=== PATIENT | male | born 1990 | race Caucasian/White ===

== ENCOUNTER 2016-05-23 20:50 | Emergency (ER) | payer OTHER ==
[~2016-05-23] VITALS: Ht 198.1 cm; Wt 160.1 kg
[2016-05-23 21:02] VITALS: BP 154/72
--- NOTE | 2016-05-23 21:40 | RADIOLOGY REPORT ---
EXAMINATION: XR FINGER, LEFT CLINICAL INFORMATION: Pain. Dislocation. COMPARISON: No relevant prior imaging is available. TECHNIQUE: An AP view of the left hand was obtained. 2 additional views of the second digit were obtained. FINDINGS: There is an acute comminuted fracture involving the proximal phalanx of the second digit. No clear evidence of intra-articular involvement. There is slight dorsal angulation of the distal fragment on the lateral projection. No dislocation. There is soft tissue swelling surrounding the fracture. The remainder of the visualized left hand is normal. IMPRESSION: Acute comminuted fracture of the proximal phalanx of the left second digit. No clear evidence of intra-articular involvement.
[2016-05-23] MEDS ORDERED: IBUPROFEN800 M1 PO (21:41)
[2016-05-23] MEDS ORDERED: PERCOCET 5-3251 EACH PO (21:41)
--- NOTE | 2016-05-23 21:44 | ED HAND/WRIST INJURY COMPLAINT ---
History of Present Illness General Chief Complaint: Upper Extremity Injury Stated Complaint: LEFT INDEX FINGER DISLOCATION Source: patient Exam Limitations: no limitations Vital Signs & Intake/Output Vital Signs & Intake/Output Vital Signs Date Time Temp Pulse Resp B/P Pulse O2 O2 Flow FiO2 Ox Delivery Rate 05/237 97 Room Air 05/23 2101 98.7 91 20 154/72 97 Room Air Allergies Coded Allergies: No Known Allergies (05/23/16) Reconcile Medications Ibuprofen 800 MG TABLET 1 TAB PO TID PAIN Oxycodone HCl/Acetaminophen (Percocet 5-325 MG Tablet) 5 MG-325 MG TABLET 1-2 TAB PO Q6P PRN PAIN Triage Note: TRIAGE: PT TO ER C/C ?DISLOCATED L INDEX FINGER S/P FALL AT 4 PM "WHEN I WAS TRYING TO SHOW OFF". HAS SPLINT IN PLACE FROM HOME WITH PENCIL AND TAPE. REFUSES OFFERED MEDICATIONS AT TRIAGE. Triage Nurses Notes Reviewed? yes Occurred: just prior to arrival Duration: hour(s): (4), constant Timing: single episode today Injury Environment: home Severity: moderate, severe Pain/Injury Location: Left: 2nd finger. Method of Injury: fall No Modifying Factors: none HPI: 26-year-old male comes into emergency room with complaints of left index finger pain. Patient reports that he fell about 4 hours ago . Sharp throbbing pain. Swelling. Continuous. Nonradiating. Denies any injury or trauma anywhere else. Denies any other associated symptoms. (KATRIN JAQUEZ) Past History Travel History Traveled to [place] past 21 day No Medical History Any Pertinent Medical History? see below for history Neurological: NONE EENT: NONE Cardiovascular: NONE Respiratory: NONE Gastrointestinal: NONE Hepatic: NONE Renal: NONE Musculoskeletal: NONE Psychiatric: NONE Endocrine: GYNECOMASTIA Blood Disorders: NONE Cancer(s): NONE BURNER HAND/Reproductive: NONE Surgical History Surgical History: non-contributory Psychosocial History What is your primary language Indonesian Tobacco Use: Quit >30 days ago ETOH Use: occasional use Illicit Drug Use: denies illicit drug use Family History Hx Contributory? No (KATRIN JAQUEZ) Review of Systems Review of Systems Constitutional: Reports: no symptoms. EENTM: Reports: no symptoms. Respiratory: Reports: no symptoms. Cardiovascular: Reports: no symptoms. GI: Reports: no symptoms. Genitourinary: Reports: no symptoms. Musculoskeletal: Reports: see HPI. Skin: Reports: no symptoms. Neurological/Psychological: Reports: no symptoms. Hematologic/Endocrine: Reports: no symptoms. Immunologic/Allergic: Reports: no symptoms. All Other Systems: Reviewed and Negative (KATRIN JAQUEZ) Physical Exam Physical Exam General Appearance: well developed/nourished, mild distress Head: atraumatic Eyes: Bilateral: normal appearance. Ears, Nose, Throat: normal ENT inspection, hearing grossly normal Neck: normal inspection Cardiovascular/Respiratory: no respiratory distress Back: normal inspection Hand Left: 2nd finger, swelling of proximal phalanx, crepitus of proximal phalanx, limited range of motion, cap refill intact, sensation intact, Hand Right: normal inspection, normal range of motion Neurologic/Tendon: normal sensation, normal motor functions, normal tendon functions, responds to pain, no evidence tendon injury, no pulse deficit Skin: intact, normal color, warm/dry Lymphatic: no anterior cervical stephani (KATRIN JAQUEZ) Progress Differential Diagnosis: contusion, compartment syndrome, dislocation, fracture, gout, sprain Plan of Care: Orders Procedure Date/time Status XRY-FINGERS, LEFT 05/23 2106 Active Diagnostic Imaging: Viewed by Me: Radiology Read. Discussed w/RAD: Radiology Read. Radiology Impression: SERVICE DATE: 05/23/16 EXAM TYPE: RAD - XRY-FINGERS , LEFT EXAMINATION: XR FINGER, LEFT CLINICAL INFORMATION: Pain. Dislocation. COMPARISON: No relevant prior imaging is available. TECHNIQUE: An AP view of the left hand was obtained. 2 additional views of the second digit were obtained. FINDINGS: There is an acute comminuted fracture involving the proximal phalanx of the second digit. No clear evidence of intra-articular involvement. There is slight dorsal angulation of the distal fragment on the lateral projection. No dislocation. There is soft tissue swelling surrounding the fracture. The remainder of the visualized left hand is normal. IMPRESSION: Acute comminuted fracture of the proximal phalanx of the left second digit. No clear evidence of intra-articular involvement. (KATRIN JAQUEZ) Departure Departure Disposition: HOME OR SELF CARE Condition: Stable Clinical Impression Primary Impression: Fracture of finger, left, closed Referrals: CYNDEE MITCHELL MD PATIENT HAS NO PRIMARY CARE DR (PCP/Family) Additional Instructions: Ice. Rest. Stay in splint. Follow-up with hand specialist provided. Take Percocet and ibuprofen as prescribed. Departure Forms: Customer Survey General Discharge Information Prescriptions: Current Visit Scripts Ibuprofen 1 TAB PO TID #30 TAB Oxycodone HCl/Acetaminophen (Percocet 5-325 MG Tablet) 1-2 TAB PO Q6P PRN PAIN #20 TAB (KATRIN JAQUEZ) PA/LEAD DATA ENTRY OPERATOR Co-Sign Statement Statement: ED Attending supervision documentation- [] I saw and evaluated the patient. I have also reviewed all the pertinent lab results and diagnostic results. I agree with the findings and the plan of care as documented in the PA's/LEAD DATA ENTRY OPERATOR's documentation. [X] I have reviewed the ED Record and agree with the PA's/LEAD DATA ENTRY OPERATOR's documentation. [] Additions or exceptions (if any) to the PAs/LEAD DATA ENTRY OPERATOR's note and plan are summarized below: [] (NEMO MENDOZA,DILSHAD Win) Procedures Splinting Location: left index finger Manual Alignment Performed: No Splint: finger splint Splint Applied By: splint applied by me Pre-Proc Neuro Vasc Exam: normal Post-Proc Neuro Vasc Exam: normal (KATRIN JAQUEZ)
== END 2016-05-23 21:54 ==
LOC: ERH 20:50
DX: S62.611A Displaced fracture of proximal phalanx of left index finger, initial encounter for closed fracture (principal); W19.XXXA Unspecified fall, initial encounter
CPT/HCPCS: 73140-LT

== ENCOUNTER → 2016-06-02 | Day surgery (SDC) | payer OTHER ==
[~2016-06-02] VITALS: Ht 198.1 cm; Wt 160.1 kg
[~2016-06-02] MED LIST: IBUPROFEN800 M1 PO; PERCOCET 5-3251 EACH PO
--- NOTE | 2016-06-02 14:38 | Operative Report ---
Operative/Inv Procedure Report Surgery Date: 06/02/16 Name of Procedure: Open reduction internal fixation left index proximal phalanx fracture. Pre-Operative Diagnosis: Comminuted, displaced unstable closed left index finger proximal phalanx fracture. Post-Operative Diagnosis: Same. Estimated Blood Loss: scant Surgeon/Employer Relations Representative: BUCKY MOJICA MD / ZARA SINGH (the physician's assistant distribution manager was required as an extra set of skilled hands throughout the entirety of the case due to the increased complexity of the case due to the multiple fracture fragments ( comminution) with extreme instability. The procedure could simply not be performed satisfactorily without an extra set of skilled hands understanding of goals of fracture fragment reduction and stabilization and instrumentation). Anesthesia: laryngeal mask airway Monitors: EKG/blood pressure/oxygen saturation. IV Fluids: Lactated Ringer's. Implants: Acumed 1.5 mm fully threaded cortical screws 7 Urine Output: None. Drains: None. Specimens: None. Microbiology: None. Tourniquet: 130 minutes@ 275 mmHg. Complications: None known. Condition: Stable. 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 Injury apparently occurred when another individual yanked and twisted his left index finger. The patient went to the [facility] emergency room. X-rays of the finger revealed the fracture. The finger was splinted and the patient was discharged with instructions for ice treatments and elevation and to be seen for orthopedic follow-up. The patient did not seek medical-orthopedic follow-up immediately following his emergency room visit as he did not understand that this fracture was a time sensitive issue. He did eventually present to our office a couple of days ago where x-rays of the finger were evaluated. The patient was advised based upon radiographic appearance of the finger as well as clinical rotatory and angulatory deformity appreciated on examination that he would be best served by undergoing surgical management of his index finger proximal phalanx fracture. The risks and benefits and expected outcomes of nonoperative management splinting/casting followed by early mobilization and extensive therapy were reviewed. The patient was advised that we anticipate that he would have significant lingering rotatory and angulatory deformity of the finger based upon the clinical examination on his initial office visit for this fracture. The risks and benefits and expected outcomes of operative intervention were also reviewed. The patient was advised that he would likely have significant stiffness with or without surgical intervention but that hopefully with surgical intervention we could achieve enough stability of the fracture fragments to allow for some earlier mobilization to minimize joint stiffness. We did also discuss the likelihood that open reduction and internal fixation would improve or at least significantly reduce angulatory and rotatory deformity. The patient was advised in addition to the above about the potential for infection and delayed union or nonunion and loss of fixation and reduction due to the comminution of the fracture. All the patient's questions were answered at length. He did wish to proceed with surgical intervention as was overall recommended and surgical consent was obtained. Operative/Procedure Note Note: The patient was brought to the operating room and placed on the operating table in the supine position. General anesthesia was induced by the anesthesiologist. A dose of IV antibiotics were given for infection prophylaxis. All bony prominences were well padded. Compression sleeves were placed on the bilateral legs to minimize venous pooling and hopefully cutdown a risk of blood clot formation. The splint on the patient's finger was taken down and although there was still moderate swelling of the finger we felt that the soft tissue envelope about the finger including the swelling was amenable to proceeding with open reduction internal fixation surgery of the finger. A well-padded tourniquet was applied to the proximal portion of the left arm. The left upper extremity was then prepped and draped in the usual sterile fashion. The patient's skin was marked for a longitudinal skin incision at the radial mid axis of the index finger proximal phalanx extending distally across the PIP joint onto the base of the middle phalanx through the proximal aspect of the skin marking for the incision was angled up and extended over the dorsal radial aspect of the MP joint and distal index metacarpal. The extremity was then exsanguinated and the pneumatic tourniquet was inflated to a pressure of 275 mmHg. The skin incision was made. After that dissection was with blunt tipped scissors. The radial digital vessels were not specifically dissected out but were reflected along with the subcutaneous tissue layer in a volar direction. We continued to dissect more deeply until we identified the fracture site. The fracture proved to be markedly comminuted with fracture lines running in coronal and sagittal an oblique and transverse directions with wide displacement of multiple fracture fragments. The fracture lines proximally extended to the radial metaphyseal base of the index finger proximal phalanx and distally to the level of the condyles of the head of the proximal found. The fracture line did not appear to propagate further between the condyles of the head of the proximal phalanx. Therefore we felt it somewhat fortunate that the fracture lines did not extend either proximally into the joint at the MP joint or distally into the joint at the PIP joint. We attempted to assess fracture mobility and ability to reduce with simple longitudinal traction. While the fracture fragments clearly were mobile and could be teased apart from one another and seemed to be mobile on fluoroscopic imaging we could not achieve a satisfactory reduction of the fracture fragments and overall alignment with simple traction. We therefore felt that an external fixator would not help us in any way other than for restoring some overall length though this also did not adequately correct fracture reduction and malalignment and malposition of the fracture fragments. We therefore continued as necessary to dissect out the fracture fragments. Unfortunately this required extensive dissection not only along the radial border of the proximal phalanx but also extending up onto the dorsal surface of the proximal phalanx by elevating and retracting the extensor mechanism in an ulnar direction. We did also need to dissect somewhat onto the volar surface of the finger but we did not open the flexor tendon sheath or displace the flexor tendon sheath and tendons in any way. The fracture needed to be reduced and stabilized in piecemeal fashion. Given the marked comminution in multiple fracture planes we could not find any type of single plate that would provide adequate reduction of the fracture fragments. Ultimately we were unable to place a plate and the fixation was performed with multiple interfragmentary cortical screws. As noted above we perform this in piecemeal fashion using 1.5 mm diameter Acumed fully threaded cortical screws trying to stabilize isolated fracture fragments to one another and then build upon the construct attaching the more stabilized bigger fracture fragments that were created with placement of the screws. We eventually achieved as good fracture fragment reduction and fixation with multiple screws that we could achieve. We next imaged the finger under fluoroscopic control by first applying longitudinal traction and then applying compression in the longitudinal plane. We did not appreciate any fracture fragment motion with this. We next manipulated the MP and PIP joints under live fluoroscopic imaging and we confirmed that we could achieve passive full MP and PIP joint extension and flexion without any shift in reduction of the fracture fragments after we achieved the final stabilized construct. We also confirmed under live fluoroscopic imaging while passively taking the PIP joint through a full arc of motion that the fracture appeared to be stable. Final fluoroscopic images were taken and saved hardcopy. Of note we did eventually need to let down the tourniquet at 130 minutes of tourniquet time even though we had not yet achieved the final stabilized construct. We achieved a provisional hemostasis with some limited electrocautery and manual pressure. Once this was achieved we continued to work on fracture fragment reduction and stabilization as described above without additional tourniquet control. Given the length of the case with the wound being open for an extended period of time we elected to irrigate aggressively with the pulsatile lavage system. After this was performed with allowed the soft tissues to fall back into normal approximation. There was no deep soft tissue closure. The soft tissue closure consisted of placement of multiple interrupted 3-0 Vicryl sutures placed in interrupted buried fashion to approximate the superficial subcutaneous tissues with the subdermal tissue layer. The skin margins were then approximated using 3-0 Prolene placed in interrupted simple fashion. A digital block was performed proximally at the level of the MP joint with injection of a total of about 8 mL of 0.5% plain Marcaine to help with prolonged postoperative pain relief. The wound was washed and dried. The suture line was covered with Xeroform nonadherent dressing. The fingers and hand with then dressed with multiple fluffed open gauze dressings over and about the index finger and between the index and middle finger web space as well as over the dorsum of the hand and into the palm. This was held in place with a couple of rolls of gauze wrap for padding. We next overwrap this with a thin layer of web roll cast padding operating the index and middle fingers together and then extending proximally about the hand and across the wrist of the distal forearm. We next applied a short arm fiberglass splint which incorporated the index and middle fingers as well as the hand and the wrist. This was secured with Hernan bandages and then allowed to set up with the fingers manipulated into the intrinsic positive position with the MP joints positioned for the index and middle fingers at roughly 80 of MP joint flexion while maintaining the PIP and DIP joints of both digits in full extension. Once the splint was set up the left upper extremity was placed into a Madan pillow for elevation. The patient was then awakened from general anesthesia and transferred to the stretcher and brought to the recovery room in stable condition having tolerated the procedure well.
== END ==
LOC: STS 01:52
DX: S62.611A Displaced fracture of proximal phalanx of left index finger, initial encounter for closed fracture (principal); X58.XXXA Exposure to other specified factors, initial encounter
CPT/HCPCS: C1713; J0690; J2250; J2405